=== PATIENT | male | born 1970 | race Caucasian/White ===

== ENCOUNTER 2016-12-04 08:13 | Emergency (ER) | payer BC ==
[~2016-12-04] VITALS: Ht 180.3 cm; Wt 113.4 kg
[2016-12-04 08:26] VITALS: BP 153/92
[2016-12-04] MEDS ORDERED: TETANUS-DIPTH-ACEL PERTUSSIS 0.5ML SYRG IM ONE (09:00)
== END 2016-12-04 09:00 | disposition home or self-care (01) ==
LOC: ER 08:13
DX: S61.412A Laceration without foreign body of left hand, initial encounter (principal); W22.8XXA Striking against or struck by other objects, initial encounter; Y93.89 Activity, other specified; Y99.8 Other external cause status; Y92.89 Other specified places as the place of occurrence of the external cause
CPT/HCPCS: 12002; 90471; 90715